=== PATIENT | female | born 1980 | race Two or more races ===

== ENCOUNTER 2017-10-05 22:35 | Emergency (ER) | payer SELFPAY ==
[~2017-10-05] VITALS: Ht 170.2 cm; Wt 88.5 kg
[2017-10-05 22:43] VITALS: BP 126/77
[2017-10-05] MEDS ORDERED: LIDOCAINE 2% 20 ML MDV TP ONE (23:00)
[2017-10-05] MEDS ORDERED: LIDOCAINE 2% 20 ML MDV ONE (23:41)
== END 2017-10-06 00:16 | disposition home or self-care (01) ==
LOC: ER 22:40
DX: S61.216A Laceration without foreign body of right little finger without damage to nail, initial encounter (principal); Z88.1 Allergy status to other antibiotic agents; W25.XXXA Contact with sharp glass, initial encounter; Y93.G1 Activity, food preparation and clean up; Y92.89 Other specified places as the place of occurrence of the external cause; Y99.8 Other external cause status
CPT/HCPCS: A4217; A4606; A6402; J3490; Z7610